=== PATIENT | female | born 1975 | race Caucasian/White ===

== ENCOUNTER 2018-06-12 08:12 | Inpatient (IN) | payer BC ==
[~2018-06-12] VITALS: Ht 167.6 cm; Wt 123.4 kg
[~2018-06-12 08:12] MED LIST: LEVO50TA5 PO
[2018-06-12] MEDS ORDERED: SODIUM CHLORIDE 0.9% 1,000ML IV ONE (09:00)
[2018-06-12] MEDS ORDERED: ONDANSETRON 2MG/ML, 2ML IVPush ONE (09:00)
[2018-06-12 09:09] LABS: MEAN CORPUSCULAR HEMOGLOBIN 27.4 pg (27.0-34.8); MEAN CORPUSCULAR HGB CONC 33.8 g/dL (32.4-35.8); MEAN CORPUSCULAR VOLUME 81.1 fL (80-100); MEAN PLATELET VOLUME 6.4 fL (7.4-10.4); PLATELET COUNT 255 x10^3/uL (130-400); RED BLOOD COUNT 4.47 x10^6/uL (3.82-5.3); RED CELL DISTRIBUTION WIDTH 13.8 % (9.6-15.2)
[2018-06-12 09:22] LABS: ALANINE AMINOTRANSFERASE 26 U/L (12-78); ALBUMIN 3.2 g/dL (3.4-5.0); ANION GAP 10 mmol/L (5-15); CALCIUM 8.2 mg/dL (8.5-10.1); CHLORIDE 104 mmol/L (98-107); CREATININE 0.94 mg/dL (0.55-1.02)
[2018-06-12] MEDS ORDERED: ONDANSETRON 2MG/ML, 2ML ONE (09:22)
[2018-06-12 09:25] LABS: ALKALINE PHOSPHATASE 62 U/L (45-117); BILIRUBIN,TOTAL 0.8 mg/dL (0.2-1.0); TOTAL PROTEIN 7.5 g/dL (6.4-8.2)
[2018-06-12 09:26] LABS: CULTURE INDICATED? YES; MICROSCOPIC INDICATED
[2018-06-12 09:31] LABS: BASOPHILS # (AUTO) 0.01 x10^3/uL (0-0.1); BASOPHILS % (AUTO) 0 % (0-1); EOSINOPHILS # (AUTO) 0.01 x10^3/uL (0-0.4); EOSINOPHILS % (AUTO) 0 % (1-7); LYMPHOCYTES # (AUTO) 1.28 x10^3/uL (1-3.4); LYMPHOCYTES % (AUTO) 9 % (22-44); MD SCAN; MONOCYTES # (AUTO) 1.38 x10^3/uL (0.2-0.8); MONOCYTES % (AUTO) 10 % (2-9); NEUTROPHILS # (AUTO) 11.36 x10^3/uL (1.8-6.8); NEUTROPHILS % (AUTO) 81 % (42-75)
[2018-06-12] MEDS ORDERED: ACETAMINOPHEN 500 MG TABLET ONE (09:32)
[2018-06-12] MEDS ORDERED: ACETAMINOPHEN 500 MG TABLET PO ONE (10:00)
[2018-06-12] MEDS ORDERED: CEFTRIAXONE PMX 1GM/50ML 50 ML ONE (11:17)
[2018-06-12] MEDS ORDERED: LEVO125T5 PO (11:28)
[2018-06-12] MEDS ORDERED: SODIUM CHLORIDE FLUSH 10ML SYR IVF PRN (11:30)
[2018-06-12] MEDS ORDERED: LABETALOL 5MG/ML, 20ML IVPush PRN (11:30)
[2018-06-12] MEDS ORDERED: CEFTRIAXONE 1,000 MG in SODIUM CHLORIDE 0.9% 50 ML IVPB ONE (11:30)
[2018-06-12] MEDS ORDERED: morphine SULFATE 10 MG/ML, 1ML IVPush PRN (11:30)
[2018-06-12] MEDS ORDERED: CYAN2000 PO (11:34)
[2018-06-12] MEDS ORDERED: CHOL2000 PO (11:35)
[2018-06-12] MEDS ORDERED: FENTANYL PF 100 MCG/2ML ONE ×2 (12:33→13:56)
[2018-06-12] MEDS ORDERED: MIDAZOLAM 1 MG/ML, 2ML ONE (12:34)
[2018-06-12] MEDS ORDERED: OMNIPAQUE 350 MG/ML, 50 ML BOTTLE ONE (13:00)
[2018-06-12] MEDS ORDERED: SUGAMMADEX 200 MG/2 ML IVPush ONE (13:26)
[2018-06-12] MEDS ORDERED: OXYcodone 5 MG/5 ML ORAL.SOL UDC ONE (13:56)
[2018-06-12] MEDS: FENTANYL PF 100 MCG/2ML IV PRN ×2 (13:59→15:28)
[2018-06-12] MEDS ORDERED: LABETALOL 5MG/ML, 20ML IV PRN (14:00)
[2018-06-12] MEDS ORDERED: hydrALAzine 20 MG/ML, 1ML IV PRN (14:00)
[2018-06-12] MEDS ORDERED: KETOROLAC 30 MG/1 ML IV PRN (14:00)
[2018-06-12] MEDS ORDERED: ALBUTEROL SULFATE 2.5 MG/3 ML NPPB PRN (14:00)
[2018-06-12] MEDS ORDERED: METOCLOPRAMIDE 5 MG/ML, 2ML IV PRN (14:00)
[2018-06-12] MEDS ORDERED: PROMETHAZINE 25 MG/ML, 1ML IV PRN (14:00)
[2018-06-12] MEDS ORDERED: OXYcodone 5 MG/5 ML ORAL.SOL UDC PO PRN (14:00)
[2018-06-12] MEDS ORDERED: ONDANSETRON 2MG/ML, 2ML IVPush PRN (14:00)
[2018-06-12] MEDS ORDERED: MEPERIDINE/PF 25MG/0.5ML IVPush PRN (14:00)
[2018-06-12] MEDS ORDERED: HYDROmorphone 2 MG/ML, 1ML IV PRN (14:00)
[2018-06-12] MEDS: D5%-0.45% NACL 1,000 ML IV SCH ×3 (14:15→21:50)
[2018-06-12] MEDS: CEFTRIAXONE 2 GM in SODIUM CHLORIDE 0.9% 50 ML IV SCH (15:36)
[2018-06-12] MEDS ORDERED: LEVOTHYROXINE 125 MCG TABLET PO ONE (16:30)
[2018-06-12 18:38] VITALS: BP_SYST 104; BP_SYST 97; BP_DIAS 63; BP_DIAS 68
[2018-06-12] MEDS ORDERED: ONDANSETRON ODT 4 MG PO PRN (19:30)
[2018-06-12 20:00] VITALS: BP 107/65
[2018-06-12] MEDS: HYDROcodone/APAP 5/325 TABLET PO PRN (20:51)
[2018-06-13 00:40] VITALS: BP 103/61
[2018-06-13 04:21] VITALS: BP 99/68
[2018-06-13] MEDS: HYDROcodone/APAP 5/325 TABLET PO PRN ×3 (04:25→22:00)
[2018-06-13] MEDS: D5%-0.45% NACL 1,000 ML IV SCH ×3 (04:51→20:50)
[2018-06-13 05:33] LABS: BASOPHILS # (AUTO) 0.03 x10^3/uL (0-0.1); BASOPHILS % (AUTO) 0 % (0-1); EOSINOPHILS # (AUTO) 0.19 x10^3/uL (0-0.4); EOSINOPHILS % (AUTO) 2 % (1-7); LYMPHOCYTES # (AUTO) 1.29 x10^3/uL (1-3.4); LYMPHOCYTES % (AUTO) 15 % (22-44); MD NO; MEAN CORPUSCULAR HEMOGLOBIN 28.1 pg (27.0-34.8); MEAN CORPUSCULAR HGB CONC 33.9 g/dL (32.4-35.8); MEAN CORPUSCULAR VOLUME 82.9 fL (80-100); MEAN PLATELET VOLUME 6.5 fL (7.4-10.4); MONOCYTES # (AUTO) 0.67 x10^3/uL (0.2-0.8); MONOCYTES % (AUTO) 8 % (2-9); NEUTROPHILS # (AUTO) 6.45 x10^3/uL (1.8-6.8); NEUTROPHILS % (AUTO) 75 % (42-75); PLATELET COUNT 244 x10^3/uL (130-400); RED BLOOD COUNT 3.88 x10^6/uL (3.82-5.3)
[2018-06-13 05:40] LABS: ALANINE AMINOTRANSFERASE 18 U/L (12-78); ALBUMIN 2.7 g/dL (3.4-5.0); ANION GAP 7 mmol/L (5-15); CALCIUM 7.6 mg/dL (8.5-10.1); CHLORIDE 105 mmol/L (98-107)
[2018-06-13 05:42] LABS: ALKALINE PHOSPHATASE 51 U/L (45-117); BILIRUBIN,TOTAL 0.4 mg/dL (0.2-1.0); CREATININE 0.78 mg/dL (0.55-1.02); TOTAL PROTEIN 6.3 g/dL (6.4-8.2)
[2018-06-13] MEDS: LEVOTHYROXINE 125 MCG TABLET PO SCH (06:18)
[2018-06-13 07:07] VITALS: BP 110/65
[2018-06-13] MEDS: CHOLECALCIFEROL 1,000 UNIT TABLET PO SCH (08:49)
[2018-06-13] MEDS: CYANOCOBALAMIN 1,000 MCG TABLET PO SCH (08:49)
[2018-06-13 12:31] VITALS: BP 105/67
[2018-06-13] MEDS: CEFTRIAXONE 2 GM in SODIUM CHLORIDE 0.9% 50 ML IV SCH (15:42)
[2018-06-13 20:58] VITALS: BP 117/76
[2018-06-14 02:43] VITALS: BP 106/68
[2018-06-14] MEDS: D5%-0.45% NACL 1,000 ML IV SCH ×2 (03:30→09:47)
[2018-06-14 05:41] LABS: BASOPHILS # (AUTO) 0.02 x10^3/uL (0-0.1); BASOPHILS % (AUTO) 0 % (0-1); EOSINOPHILS # (AUTO) 0.22 x10^3/uL (0-0.4); EOSINOPHILS % (AUTO) 3 % (1-7); LYMPHOCYTES # (AUTO) 1.83 x10^3/uL (1-3.4); LYMPHOCYTES % (AUTO) 27 % (22-44); MD NO; MEAN CORPUSCULAR HGB CONC 33.8 g/dL (32.4-35.8); MEAN CORPUSCULAR VOLUME 82.8 fL (80-100); MEAN PLATELET VOLUME 6.2 fL (7.4-10.4); MONOCYTES # (AUTO) 0.74 x10^3/uL (0.2-0.8); MONOCYTES % (AUTO) 11 % (2-9); NEUTROPHILS # (AUTO) 4.07 x10^3/uL (1.8-6.8); NEUTROPHILS % (AUTO) 59 % (42-75); PLATELET COUNT 300 x10^3/uL (130-400); RED BLOOD COUNT 3.84 x10^6/uL (3.82-5.3); RED CELL DISTRIBUTION WIDTH 13.4 % (9.6-15.2)
[2018-06-14] MEDS: HYDROcodone/APAP 5/325 TABLET PO PRN (05:42)
[2018-06-14] MEDS: LEVOTHYROXINE 125 MCG TABLET PO SCH (05:42)
[2018-06-14 05:45] LABS: ALBUMIN 2.6 g/dL (3.4-5.0); ANION GAP 6 mmol/L (5-15); CALCIUM 7.9 mg/dL (8.5-10.1); CHLORIDE 106 mmol/L (98-107); CREATININE 0.75 mg/dL (0.55-1.02)
[2018-06-14 07:57] VITALS: BP 119/84
[2018-06-14] MEDS: CYANOCOBALAMIN 1,000 MCG TABLET PO SCH (09:07)
[2018-06-14] MEDS: CHOLECALCIFEROL 1,000 UNIT TABLET PO SCH (09:07)
[2018-06-14] MEDS ORDERED: CEFTRIAXONE 2 GM in SODIUM CHLORIDE 0.9% 50 ML IV SCH (10:00)
[2018-06-14] MEDS ORDERED: CEFD300C37 PO (10:00)
== END 2018-06-14 12:21 | disposition home or self-care (01) | DRG 854 ==
LOC: ED 10:01 → EDIP 11:55 → 4NOR 14:32 → DCLOUNGE 06-14 12:08
PROVIDERS: ADMIT Hospitalist; ATTEND Hospitalist
PROC: 0T9B70Z Drainage of Bladder with Drainage Device, Via Natural or Artificial Opening (ICD-10-PCS; 2018-06-12)
PROC: 0T738DZ Dilation of Right Kidney Pelvis with Intraluminal Device, Via Natural or Artificial Opening Endoscopic (ICD-10-PCS; principal; 2018-06-12 12:30)
DX: A41.9 Sepsis, unspecified organism (principal); N13.6 Pyonephrosis; D64.9 Anemia, unspecified; E06.3 Autoimmune thyroiditis; K52.9 Noninfective gastroenteritis and colitis, unspecified
CPT/HCPCS: 36415; 71045; 74420; 80048; 80053; 81001; 82040; 83605; 83735; 84100; 85025; 87040; 87086; 96365; 96375; 99285; J0696; J2250; J2405; J3010; Q0162; Q9967; C1758; C1769; C2617; J7030